=== PATIENT | male | born 1985 ===

== ENCOUNTER 2016-06-05 21:22 | Inpatient (IN) | payer MEDICAID ==
[2016-06-05 21:22] VITALS: BMI 23.4
[2016-06-05 22:41] LABS: BASO % 0.6 % (0.0-2.0); EOS # 0.4 K/uL (0.0-0.7); EOS % 7.3 % (0.0-4.0); HEMATOCRIT 36.9 % (35.0-51.0); LYMPH # 1.8 K/uL (1.0-4.3); LYMPH % 30.2 % (20.0-40.0); MEAN CELL VOLUME 87.6 fL (80.0-94.0); MEAN CORPUSCULAR HEMOGLOBIN 28.7 pg (27.0-31.0); MEAN CORPUSCULAR HGB CONC 32.8 g/dL (33.0-37.0); MEAN PLATELET VOLUME 7.6 fL (7.2-11.7); MONO # 0.5 K/uL (0.0-0.8); MONO % 8.2 % (0.0-10.0); WHITE BLOOD COUNT 5.8 K/uL (4.8-10.8)
[2016-06-05 22:53] LABS: CHLORIDE 96 mmol/L (98-107)
[2016-06-05 22:54] LABS: SODIUM 137 mmol/L (132-148)
[2016-06-05 22:56] LABS: CARBON DIOXIDE 29 mmol/L (22-30); GFR AFRICAN-AMERICAN > 60
[2016-06-05 22:57] LABS: ALB/GLOB RATIO 1.2 (1.0-2.1); ALKALINE PHOSPHATASE 61 U/L (38-126); ALT/SGPT 22 U/L (21-72); AST/SGOT 29 U/L (17-59); BILIRUBIN,TOTAL 0.2 mg/dL (0.2-1.3); BLOOD UREA NITROGEN 10 mg/dL (9-20); GLUCOSE,RANDOM 80 mg/dL (75-110); TOTAL PROTEIN 7.7 g/dL (6.3-8.3)
[2016-06-05 22:58] LABS: ALCOHOL SERUM < 10 mg/dl (0-10)
[2016-06-05 22:59] LABS: RBC URINE < 1 /hpf (0-3); URINE BILIRUBIN NEGATIVE (NEGATIVE); URINE BLOOD NEGATIVE (NEGATIVE); URINE COLOR Straw (YELLOW); URINE GLUCOSE (UA) NORMAL (Normal); URINE KETONE NEGATIVE (NEGATIVE); URINE LEUKOCYTE ESTERASE NEG Leu/uL (Negative); URINE PROTEIN NEGATIVE (NEGATIVE); URINE UROBILINOGEN NORMAL mg/dL (0.2-1.0)
--- NOTE | 2016-06-05 23:27 | C.PDOC ---
History Of Present Illness 31 y/o male here for detox from prescription opioids, uses approx 150 mg oxycodone daily, last used this morning. pt feels some symptoms of withdrawal- nausea and bodyaches. denies any other physical complaints. Time Seen by Provider: 06/05/16 22:57 Chief Complaint (Nursing): Substance Abuse Past Medical History Reviewed: Historical Data, Nursing Documentation, Vital Signs Vital Signs: Last Vital Signs Temp 98.4 F 06/05/16 21:29 Pulse 75 06/05/16 23:27 Resp 20 06/05/16 23:27 BP 107/75 06/05/16 23:27 Pulse Ox 100 06/06/16 01:46 - Medical History PMH: Anxiety, Back Problems, Fractures (right wrist) Denies: Diabetes, Hepatitis, HIV, HTN, Seizures, Sexually Transmitted Disease Other Surgeries: hand surgery - [facility] DETOXIFICATION SERVICES FOR SUBSTANCE ABUSE TREATMENT (12/27/15) GROUP MEDICINE TEACHER FOR SUBSTANCE ABUSE TREATMENT, PSYCHOEDUCATION (12/27/15) Family History: States: Unknown Family Hx - Social History Hx Tobacco Use: No Hx Alcohol Use: No Hx Substance Use: Yes (percocet) - Immunization History Hx Tetanus Toxoid Vaccination: Yes Hx Influenza Vaccination: No Hx Pneumococcal Vaccination: No Review Of Systems Constitutional: Positive for: Chills. Negative for: Fever Cardiovascular: Negative for: Chest Pain, Palpitations Respiratory: Negative for: Cough, Shortness of Breath Gastrointestinal: Positive for: Nausea. Negative for: Vomiting, Abdominal Pain Skin: Negative for: Rash Physical Exam - Physical Exam Appears: Non-toxic, No Acute Distress Skin: Normal Color, Warm, Dry Head: Atraumatic, Normacephalic Neck: Normal, Normal ROM Chest: Symmetrical, No Deformity, No Tenderness Cardiovascular: Rhythm Regular, No Murmur Respiratory: Normal Breath Sounds, No Rales, No Rhonchi, No Wheezing Gastrointestinal/Abdominal: Normal Exam, Bowel Sounds, Soft, No Tenderness Extremity: Normal ROM Neurological/Psych: Oriented x3, Normal Cognition, Normal Motor, Normal Sensation ED Course And Treatment - Laboratory Results Result Diagrams: 06/05/16 22:38 06/05/16 22:38 O2 Sat by Pulse Oximetry: 100 Medical Decision Making Medical Decision Makin31 y/o male here for detox, needs medical clearance. 1130 pm pt is medically cleared for detox program. Disposition Discussed With : Gabino Feliciano Doctor Will See Patient In The: Hospital - Disposition Disposition: HOSPITALIZED Disposition Time: 01:44 Condition: STABLE - Clinical Impression Clinical Impression: Opioid use disorder, severe, dependence
--- NOTE | 2016-06-06 01:47 | C.PDOC ---
Time Seen by Provider: 06/05/16 22:57 Chief Complaint (Nursing): Substance Abuse Past Medical History Vital Signs: Last Vital Signs Temp 98.4 F 06/05/16 21:29 Pulse 75 06/05/16 23:27 Resp 20 06/05/16 23:27 BP 107/75 06/05/16 23:27 Pulse Ox 100 06/06/16 01:46 - Medical History PMH: Anxiety, Back Problems, Fractures (right wrist) Denies: Diabetes, Hepatitis, HIV, HTN, Seizures, Sexually Transmitted Disease Other Surgeries: hand surgery - [facility] Procedures DETOXIFICATION SERVICES FOR SUBSTANCE ABUSE TREATMENT (12/27/15) GROUP NUTRITION PARTNER FOR SUBSTANCE ABUSE TREATMENT, PSYCHOEDUCATION (12/27/15) Family History: States: Unknown Family Hx - Social History Hx Tobacco Use: No Hx Alcohol Use: No Hx Substance Use: Yes (percocet) - Immunization History Hx Tetanus Toxoid Vaccination: Yes Hx Influenza Vaccination: No Hx Pneumococcal Vaccination: No ED Course And Treatment - Laboratory Results Result Diagrams: 06/05/16 22:38 06/05/16 22:38 O2 Sat by Pulse Oximetry: 100 Disposition - Clinical Impression Clinical Impression: Opioid use disorder, severe, dependence Decision To Admit - Pt Status Changed To: Hospital Disposition Of: Inpatient - Admit Certification Admit to Inpatient:: After my assessment, the patient will require hospitalization for at least two midnights. This is because of the severity of symptoms shown, intensity of services needed, and/or the medical risk in this patient being treated as an outpatient. - InPatient: Physician Admission Certification: I certify that this patient requires 2 or more midnights of care for the following reason:: for detox from opioids - . Bed Request Type: Detox Admitting Physician: Gabino Feliciano Patient Diagnosis: Opioid use disorder, severe, dependence
[2016-06-06] MEDS ORDERED: Buprenorphine Hydrochloride 2 mg SL ONE ×4 (03:22→18:00)
[2016-06-06] MEDS ORDERED: Aluminum Hydroxide/Magnesium Hydroxide Susp (30 mL) PO PRN (03:25)
--- NOTE | 2016-06-06 13:30 | PCM.PSYCH ---
Initial Psychiatric Evaluation - Initial Psychiatric Evaluation Type of Admission: Voluntary Legal Status: Capacity Chief Complaint (in patient's own words): Current with treatment for my opiate use History of Present Illness and Precipitating Events: Patient is a 31 years old, single, unemployed, male with history of opiate use was admitted for the treatment of opiate withdrawal. Patient denied any psychiatric history. Reported he was taking Percocet 15-20 pills daily. Patient reported initially Percocet was started after his hand surgery more than one and a half year ago. Patient reported that he started buying Percocet from [employer] as his providers stopped giving him Percocet. Last use of Percocet reported yesterday. Longest period of abstinence was about 6 months, and August 2015 -February 2016. He relapsed on Percocet more than 2 months ago. History of one detox in August 2015. Patient denied use of any other drugs including alcohol cocaine and cannabis. Denied smoking cigars. Current Medications: Active Medications Generic Name Dose Route Start Last Admin Trade Name Freq PRN Reason Stop Dose Admin Al Hydrox/Mg Hydrox/Simethicone 30 ml 06/06/16 03:25 Maalox 30 Ml PO TID PRN Indigestion / Heartburn Dicyclomine HCl 10 mg 06/06/16 03:25 Bentyl PO Q6 PRN Muscle spasm Hydroxyzine HCl 25 mg 06/06/16 03:25 Atarax PO Q6 PRN Anxiety Influenza Virus Vaccine 45 mcg 06/09/16 10:00 Afluria IM 06/09/16 10:01 .ONCE ONE Loperamide HCl 2 mg 06/06/16 03:25 Imodium PO Q8 PRN Diarrhea Ondansetron HCl 4 mg 06/06/16 03:25 Zofran Tab PO Q8 PRN Nausea/Vomiting Pneumococcal Polyvalent Vaccine 0.5 ml 06/09/16 10:00 Pneumovax 23 Vaccine IM 06/09/16 10:01 .ONCE ONE Trazodone HCl 50 mg 06/06/16 03:25 Desyrel PO HS PRN Insomnia Past Psychiatric History - Past Psychiatric History Previous Treatment History: Inpatient Prior Professional Help: One previous detox History of Abuse: None reported History of ETOH/Drug Use: See HPI History of Family Illness: None reported Pertinent Medical Hx (Current Medical&Sleep Prob, Allergies): Allergies Allergy/AdvReac Type Severity Reaction Status Date / Time No Known Allergies Allergy Verified 06/05/16 21:29 clonazePAM [clonAZEPAM] 1 mg PO DAILY 06/05/16 Review of Systems - Psychiatric Psychiatric: Other Mental Status Examination - Personal Presentation Personal Presentation: Looks stated age - Affect Affect: Other (Appropriate) - Motor Activity Motor Activity: Calm - Reliability in Providing Information Reliability in Providing Information: Good - Speech Speech: Organized - Mood Mood: Anxious - Formal Thought Process Formal Thought Process: No Impairment - Hallucinations/Delusions Hallucinations: Other (None reported) Delusions: Other - Obsessions/Compulsions Obsessions: None Compulsions: None - Cognitive Functions Orientation: Person, Place, Situation, Time Sensorium: Alert Attention/Concentration: Attentive Abstract Thinking: [place] Estimate of Intelligence: Average Judgement: Intact, as evidence by: Insight regarding need for hospitalization Memory: Recent intact, as evidence by: 3/3 object recall, Remote intact, as evidenced by: Ability to recall historical events - Risk Risk: Withdrawal, Diminished functioning - Strength & Assets Inventory Strength & Assets Inventory: Education, Skills, Cooperative - Limitations Limitations: Living alone DSM 5 DX - DSM 5 DSM 5 Diagnosis: Opiate use disorder severe Cannabis use disorder - Recommended/Plan of Treatment Treatment Recommendations and Plan of Treatment: Patient education Supportive therapy We'll start Subutex for opiate withdrawal symptoms Other when necessary medications Patient wants to go to reduce Suboxone clinic and also wants to attend any meetings after discharge from the hospital Projected ELOS: 4-5 days - Smoking Cessation Smoking Cessation Initiated: No Reason for not providing: Patient doesn't smoke cigarettes
[2016-06-07] MEDS: Buprenorphine Hydrochloride 2 mg SL SCH (09:28)
--- NOTE | 2016-06-07 12:59 | PCM.PYCHPN ---
Psychiatric Progress Note - Psychiatric Progress Note Patient seen today, length of contact: 15 minutes Patient Chief Complaint: I'm feeling better than yesterday but I couldn't sleep last night. Problems Identified/Issues Discussed: Patient seen. Chart reviewed. Case discussed with the staff. Issues related to illness and treatment were discussed with the patient. Reported compliant with treatment with no adverse affects. Tolerating treatment very well. Patient reported feeling much better but has sleeping problems. Couldn't sleep last night. We'll increase the dose of trazodone to 100 mg. Patient understood and agreed. At the time of evaluation, patient was awake alert oriented 3, had no delusions, no auditory or visual hallucinations, no suicidal ideations or homicidal ideations. Medical Problems: Hypertension Diagnostic Results: Reviewed DSM 5 Symptoms Update: Improving with treatment Medication Change: No Medical Record Reviewed: Yes Mental Status Examination - Cognitive Function Orientation: Person, Place, Situation, Time Memory: Intact Attention: WNL Concentration: WNL Association: WNL Fund of Knowledge: WN Decription of patient's judgement and insights: Fair - Mood Mood: Anxious (Much less than before) - Affect Affect: Other (Appropriate) - Speech Speech: Appropriate - Formal Thought Process Formal Thought Process: No Impairment Psychotic Thoughts and Behaviors: None - Suicidal Ideation Suicidal Ideation: No - Homicidal Ideation Homicidal Ideation: No Goal/Treatment Plan - Goal/Treatment Plan Need for Continued Stay: Remain at risks for inpatient hospitalization, Discharge may exacerbated symptoms, Severe functional impairment Progress Toward Problem(s) and Goals/Treatment Plan: Patient education Supportive therapy Continue treatment as before Patient wants to go to Suboxone clinic and also wants to attend any meetings after discharge from the hospital Estimated Date of D/C: 06/09/16 - Smoking Cessation Smoking Cessation Initiated: No Reason for not providing: Patient doesn't smoke cigarettes
[2016-06-07 15:20] VITALS: RESP 18
[2016-06-08] MEDS: Buprenorphine Hydrochloride 2 mg SL SCH (09:25)
[2016-06-08] MEDS ORDERED: Buprenorphine Hydrochloride 2 mg SL SCH (10:00)
--- NOTE | 2016-06-08 12:12 | PCM.PYCHPN ---
Psychiatric Progress Note - Psychiatric Progress Note Patient seen today, length of contact: 15 minutes Patient Chief Complaint: I'm feeling better than yesterday but still I couldn't sleep last night. Problems Identified/Issues Discussed: Patient seen. Chart reviewed. Case discussed with the staff. Issues related to illness and treatment were discussed with the patient. Reported compliant with treatment with no adverse affects. Tolerating treatment very well. Patient reported feeling much better but still has sleeping problems. Couldn't sleep better last night. We'll increase the dose of trazodone to 150 mg. Patient understood and agreed. At the time of evaluation, patient was awake alert oriented 3, had no delusions, no auditory or visual hallucinations, no suicidal ideations or homicidal ideations. Medical Problems: Hypertension Diagnostic Results: Reviewed DSM 5 Symptoms Update: Improving with treatment Medication Change: No Medical Record Reviewed: Yes Mental Status Examination - Cognitive Function Orientation: Person, Place, Situation, Time Memory: Intact Attention: WNL Concentration: WNL Association: WNL Fund of Knowledge: WN Decription of patient's judgement and insights: Fair - Mood Mood: Anxious (Much less than before) - Affect Affect: Other (Appropriate) - Speech Speech: Appropriate - Formal Thought Process Formal Thought Process: No Impairment Psychotic Thoughts and Behaviors: None - Suicidal Ideation Suicidal Ideation: No - Homicidal Ideation Homicidal Ideation: No Goal/Treatment Plan - Goal/Treatment Plan Need for Continued Stay: Remain at risks for inpatient hospitalization, Discharge may exacerbated symptoms, Severe functional impairment Progress Toward Problem(s) and Goals/Treatment Plan: Patient education Supportive therapy Continue treatment as before Patient wants to go to Suboxone clinic and also wants to attend any meetings after discharge from the hospital Estimated Date of D/C: 06/09/16 - Smoking Cessation Smoking Cessation Initiated: No Reason for not providing: Patient doesn't smoke cigarettes
[2016-06-09 06:26] VITALS: BP 114/68; PULSE 77; TEMP 97.6; O2SAT 96
[2016-06-09] MEDS: Buprenorphine Hydrochloride 2 mg SL SCH (08:35)
[2016-06-09] MEDS ORDERED: Influenza Virus Vaccine 45 mcg/0.5 ml Syr IM ONE (10:00)
[2016-06-09] MEDS ORDERED: Pneumococcal 23-Valent Vaccine IM ONE (10:00)
== END 2016-06-09 08:40 | disposition home or self-care (01) | DRG 745 ==
LOC: C.ER 21:22 → C.7D 06-06 01:54
PROC: HZ52ZZZ Individual Psychotherapy for Substance Abuse Treatment, Cognitive-Behavioral (ICD-10-PCS; principal; 2016-06-06)
PROC: HZ59ZZZ Individual Psychotherapy for Substance Abuse Treatment, Supportive (ICD-10-PCS; 2016-06-06)
PROC: HZ56ZZZ Individual Psychotherapy for Substance Abuse Treatment, Psychoeducation (ICD-10-PCS; 2016-06-06)
PROC: HZ2ZZZZ Detoxification Services for Substance Abuse Treatment (ICD-10-PCS; 2016-06-06)
DX: F11.23 Opioid dependence with withdrawal (principal); I10 Essential (primary) hypertension; F41.9 Anxiety disorder, unspecified; F12.90 Cannabis use, unspecified, uncomplicated